=== PATIENT | male | born 1970 | race African-American/Black ===

== ENCOUNTER 2016-12-13 05:53 | Inpatient (IN) | payer MEDICAID ==
[~2016-12-13] VITALS: Ht 180.3 cm; Wt 145.3 kg
[2016-12-13] MEDS ORDERED: OXYcodone/APAP 10/325MG TABLET PO ONE (07:00)
[2016-12-13] MEDS ORDERED: AMPICILLIN/SULBACTAM 3 GM in SODIUM CHLORIDE 0.9% 100 ML IV ONE (07:00)
[2016-12-13] MEDS ORDERED: OXYcodone/APAP 10/325MG TABLET ONE (07:16)
[2016-12-13 07:23] LABS: HEMOGLOBIN 11.4 g/dL (13.7-18.0)
[2016-12-13 07:30] LABS: BLOOD UREA NITROGEN 10 mg/dL (7-18)
[2016-12-13] MEDS ORDERED: VANCOMYCIN PMX 1GM/200ML 200 ML IV ONE (11:00)
[2016-12-13] MEDS ORDERED: TEMAZEPAM 15 MG CAPSULE PO PRN (11:00)
[2016-12-13] MEDS ORDERED: POTASSIUM CHLORIDE 20 MEQ TAB.ER.PRT PO ONE (11:00)
[2016-12-13] MEDS ORDERED: ONDANSETRON 2MG/ML, 2ML IVP PRN (11:00)
[2016-12-13] MEDS ORDERED: VANCOMYCIN PER PHARMACY MC PRN (11:00)
[2016-12-13] MEDS ORDERED: ENALAPRILAT 1.25 MG/ML, 2ML IVPush PRN (11:00)
[2016-12-13] MEDS ORDERED: ACETAMINOPHEN 325 MG TABLET PO PRN (11:00)
[2016-12-13] MEDS ORDERED: MORPHINE SULFATE 4 MG/ML, 1ML IVPush PRN (11:00)
[2016-12-13] MEDS ORDERED: ENOXAPARIN 40 MG/0.4 ML ONE (11:04)
[2016-12-13] MEDS ORDERED: PIPERACILLIN/TAZO/PMX 3.375GM 50 ML ONE (11:04)
[2016-12-13] MEDS: SODIUM CHLORIDE 0.9% 1,000 ML IV SCH ×2 (11:12→17:26)
[2016-12-13] MEDS ORDERED: HYDR-3240 PO (11:12)
[2016-12-13] MEDS ORDERED: DOCU100C PO (11:12)
[2016-12-13] MEDS: ENOXAPARIN 40 MG/0.4 ML SQ SCH (11:12)
[2016-12-13] MEDS ORDERED: ASPI-496 PO (11:12)
[2016-12-13] MEDS: PIPERACILLIN/TAZO/PMX 3.375GM 50 ML IV SCH ×3 (11:12→22:23)
[2016-12-13] MEDS ORDERED: POTASSIUM CHLORIDE 20 MEQ TAB.ER.PRT ONE (11:21)
[2016-12-13] MEDS ORDERED: PHARMACOKINETIC CONSULTATION MC ONE (15:00)
[2016-12-13] MEDS ORDERED: PHARMACOKINETIC MONITORING MC PRN (15:00)
[2016-12-13] MEDS ORDERED: GADOBUTROL 10 MMOL/10 ML PFS ONE (15:10)
[2016-12-13 16:05] VITALS: BP 117/76
[2016-12-13] MEDS: HYDROcodone/APAP 5/325 TABLET PO PRN ×2 (17:25→22:23)
[2016-12-13 20:14] VITALS: BP 124/79
[2016-12-13] MEDS: VANCOMYCIN 2,000 MG in SODIUM CHLORIDE 0.9% 500 ML IV SCH (20:33)
[2016-12-14 02:30] VITALS: BP 137/82
[2016-12-14] MEDS: SODIUM CHLORIDE 0.9% 1,000 ML IV SCH ×3 (03:58→22:08)
[2016-12-14] MEDS: PIPERACILLIN/TAZO/PMX 3.375GM 50 ML IV SCH ×3 (05:12→17:39)
[2016-12-14 05:16] LABS: BLOOD UREA NITROGEN 6 mg/dL (7-18)
[2016-12-14 05:20] LABS: ASPARTATE AMINO TRANSFERASE 21 U/L (15-37)
[2016-12-14 06:49] VITALS: BP 118/71
[2016-12-14] MEDS: VANCOMYCIN 2,000 MG in SODIUM CHLORIDE 0.9% 500 ML IV SCH (09:37)
[2016-12-14] MEDS: ENOXAPARIN 40 MG/0.4 ML SQ SCH (12:07)
[2016-12-14] MEDS: HYDROcodone/APAP 5/325 TABLET PO PRN ×2 (13:34→21:30)
[2016-12-14 14:17] VITALS: BP 134/79
[2016-12-14] MEDS ORDERED: LIDOCAINE 1%, 20ML ONE (16:27)
[2016-12-14] MEDS ORDERED: SODIUM BICARBONATE 4.2%, 5ML ONE (16:27)
[2016-12-14] MEDS ORDERED: VANCOMYCIN IV SCH (18:00)
[2016-12-14] MEDS ORDERED: SODIUM CHLORIDE 0.9% IV SCH (18:00)
[2016-12-14 19:07] VITALS: BP 110/71
[2016-12-15] MEDS: PIPERACILLIN/TAZO/PMX 3.375GM 50 ML IV SCH ×4 (00:31→18:27)
[2016-12-15 03:17] VITALS: BP 127/88
[2016-12-15 07:21] VITALS: BP 126/74
[2016-12-15] MEDS: HYDROcodone/APAP 5/325 TABLET PO PRN ×4 (08:39→22:27)
[2016-12-15] MEDS: VANCOMYCIN 2,500 MG in SODIUM CHLORIDE 0.9% 500 ML IV SCH ×2 (09:30→21:06)
[2016-12-15] MEDS: SODIUM CHLORIDE 0.9% 1,000 ML IV SCH ×2 (09:30→20:10)
[2016-12-15] MEDS: ENOXAPARIN 40 MG/0.4 ML SQ SCH (12:50)
[2016-12-15 14:10] VITALS: BP 132/86
[2016-12-15 20:08] VITALS: BP 140/88
[2016-12-16] MEDS: PIPERACILLIN/TAZO/PMX 3.375GM 50 ML IV SCH ×5 (00:49→23:58)
[2016-12-16 02:42] VITALS: BP 138/85
[2016-12-16] MEDS: SODIUM CHLORIDE 0.9% 1,000 ML IV SCH ×3 (04:50→17:42)
[2016-12-16 07:38] VITALS: BP 106/66
[2016-12-16] MEDS: VANCOMYCIN 2,500 MG in SODIUM CHLORIDE 0.9% 500 ML IV SCH ×2 (08:36→21:39)
[2016-12-16] MEDS: HYDROcodone/APAP 5/325 TABLET PO PRN ×3 (08:41→20:39)
[2016-12-16] MEDS: ENOXAPARIN 40 MG/0.4 ML SQ SCH (11:55)
[2016-12-16 13:05] VITALS: BP 102/59
[2016-12-16 18:36] VITALS: BP 132/68
[2016-12-17 01:45] VITALS: BP 111/70
[2016-12-17] MEDS: SODIUM CHLORIDE 0.9% 1,000 ML IV SCH ×2 (03:33→10:16)
[2016-12-17] MEDS: PIPERACILLIN/TAZO/PMX 3.375GM 50 ML IV SCH (05:47)
[2016-12-17] MEDS: HYDROcodone/APAP 5/325 TABLET PO PRN (06:02)
[2016-12-17 08:29] VITALS: BP 127/74
[2016-12-17] MEDS: VANCOMYCIN 2,500 MG in SODIUM CHLORIDE 0.9% 500 ML IV SCH (10:15)
[2016-12-17] MEDS ORDERED: AMOX1TAB12 PO (11:15)
[2016-12-17] MEDS ORDERED: AMOXICILLIN/CLAV 875-125MG TABLET PO SCH (21:00)
== END 2016-12-17 12:53 | disposition home or self-care (01) | DRG 602 ==
LOC: ED 07:53 → EDIP 08:39 → 3NE 15:30 → DCLOUNGE 12-17 12:40
PROVIDERS: ADMIT Hospitalist; ATTEND Internal Medicine
PROC: 0T9B70Z Drainage of Bladder with Drainage Device, Via Natural or Artificial Opening (ICD-10-PCS; 2016-12-13)
PROC: 0S9B3ZX Drainage of Left Hip Joint, Percutaneous Approach, Diagnostic (ICD-10-PCS; principal; 2016-12-14)
DX: L03.116 Cellulitis of left lower limb (principal); E43 Unspecified severe protein-calorie malnutrition; R65.10 Systemic inflammatory response syndrome (SIRS) of non-infectious origin without acute organ dysfunction; Z68.41 Body mass index [BMI] 40.0-44.9, adult; E66.01 Morbid (severe) obesity due to excess calories; Z96.642 Presence of left artificial hip joint; G89.29 Other chronic pain; M25.552 Pain in left hip; Z98.890 Other specified postprocedural states
CPT/HCPCS: 36415; 77002; 80048; 80053; 80202; 81003; 82040; 83605; 83735; 84100; 84145; 85025; 85610; 85651; 86140; 87040; 87070; 87205; 87324; 89051; 93005; 93970; 96365; A9585; J0295; J1650; J2543; J3370; J3490; J7030; J7040